=== PATIENT | male | born 1995 | race Two or more races ===

== ENCOUNTER 2022-10-13 01:27 | Emergency (ER) | payer MEDICAID ==
[~2022-10-13] VITALS: Ht 165.1 cm; Wt 75.0 kg
[2022-10-13 01:27] VITALS: BP 157/79
[2022-10-13] MEDS ORDERED: ACETAMINOPHEN 500 MG TABLET PO ONE (01:45)
[2022-10-13] MEDS ORDERED: LITH300T4 PO (01:47)
[2022-10-13] MEDS ORDERED: RISP2TAB45 PO (01:47)
== END 2022-10-13 03:55 | disposition home or self-care (01) ==
LOC: EMS 01:28
DX: S43.102A Unspecified dislocation of left acromioclavicular joint, initial encounter (principal); F31.9 Bipolar disorder, unspecified; W18.39XA Other fall on same level, initial encounter; Y93.02 Activity, running; Y92.89 Other specified places as the place of occurrence of the external cause; Y99.8 Other external cause status
CPT/HCPCS: 23650; 99284; 73000-TC; 73030-TC; Z7502; Z7610